=== PATIENT | male | born 1955 | race African-American/Black ===

== ENCOUNTER 2020-02-03 09:19 | Outpatient (CLI) | payer MEDICARE, MEDICAID, SELFPAY ==
--- NOTE | 2020-02-03 13:51 | WPDPFTINT ---
PFT Interpretation PFT Interpretation: This PFT met all criteria for ATS standards and reproducibility FEV/FVC post bronchodilator 44% FEV1 37% or 1.15 liters FVC 57% or 2.60 liters FEV1 improved by 70% and 470 ml post bronchodilator TLC 102% or 6.71 liters RV 169% RV/TLC 62% DLCO 67% when adjusted for alveolar volume but not adjusted for hemoglobin Flow volume loops showed severe expiratory coving Impression: Severe airflow obstruction with good response to bronchodilators. Air trapping and mildly decreased diffusion capacity were also present. This pattern is suggestive of COPD with Asthma component. Clinical correlation is advised.
== END 2020-02-03 09:20 | disposition home or self-care (01) ==
PROVIDERS: PCP Internal Medicine Infectious Disease; Visit Provider Internal Medicine Critical Care Medicine
DX: J44.9 Chronic obstructive pulmonary disease, unspecified (principal); R94.2 Abnormal results of pulmonary function studies
CPT/HCPCS: 94060; 94726; 94729

== ENCOUNTER 2020-04-14 14:53 | Outpatient (CLI) | payer MEDICARE, SELFPAY ==
--- NOTE | ~2020-04-14 | CT_ITS ---
EXAMINATION: CT lung screening DATE: 04/14/2020 15:57 INDICATION: Smoker. History of tobacco dependence. TECHNIQUE: Computed tomography (CT) of the chest was performed without intravenous contrast. The dose -length product was 67.12 mGy-cm. Automated exposure control and iterative reconstruction technique w ere employed. COMPARISON: None FINDINGS: There is no thoracic lymphadenopathy. There are are nonenlarged axillary and mediastinal ly mph nodes, likely reactive. Heart size is normal. No significant pleural or pericardial effusion. No evidence for aortic aneurysm. Mild emphysema. There are a few small scattered 2-3 mm pulmonary nodule s, likely benign. There is right lower lobe atelectasis. No pneumothorax. No acute osseous abnormalit y. Mild thoracic spondylosis. There are fusion changes at the cervicothoracic junction. IMPRESSION: 1. Lung-RADS category 2: Benign appearance or behavior. Continue annual screening with noncontrast lo w-dose chest CT in 12 months. Reviewed, dictated and finalized at location A. [employer] IMPRESSION: 1. Lung-RADS category 2: Benign appearance or behavior. Continue annual screeni ng with noncontrast low-dose chest CT in 12 months.
== END 2020-04-14 14:54 | disposition home or self-care (01) ==
PROVIDERS: PCP Internal Medicine Infectious Disease; Visit Provider Nurse Practitioner Family
DX: Z12.2 Encounter for screening for malignant neoplasm of respiratory organs (principal); Z87.891 Personal history of nicotine dependence
CPT/HCPCS: 71271